=== PATIENT | female | born 1975 | race Two or more races ===

== ENCOUNTER 2024-08-24 10:00 | Inpatient (IN) | payer MEDICAID, OTHER ==
[~2024-08-24] VITALS: Ht 154.9 cm; Wt 68.9 kg
[2024-08-24] MEDS: KETOROLAC TROMETH 30 MG/ML 1ML VIAL IV ONE ×2 (10:20→17:38)
[2024-08-24] MEDS: SODIUM CHLORIDE 0.9% 1,000 ML IV ONE (10:20)
[2024-08-24 10:39] LABS: Potassium 4.1 mmol/L (3.5-5.1); Sodium 143 mmol/L (136-145)
[2024-08-24 10:40] LABS: Anion Gap 11 (5-15); Calcium 10.5 mg/dL (8.7-10.4); Carbon Dioxide 22 mmol/L (20-31); Chloride 110 mmol/L (98-107)
--- NOTE | 2024-08-24 10:41 | ED.PDOC ---
General HPI Comments 48 y/o F, BIBA, presents to the ED for CC of flank pain. EMS reports, patient is coming from home where she c/o left sided flank pain onset, last night (08/23/24). Patient states, to have experienced similar symptoms in the past when passing kidney stones. Patient denies fever, chills, dysuria, or hematuria. No other symptoms or modifying factors present at this time. 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 Hx Family History Family History: Unknown Social History Smoker: Non-Smoker Alcohol: Denies ETOH Use Drugs: Denies Drug Use Lives In: Home Constitutional: denies: chills, diaphoresis, fatigue, fever, malaise, sweats, weakness, others EENTM: denies: blurred vision, double vision, ear bleeding, ear discharge, ear drainage, ear pain, ear ringing, eye pain, eye redness, hearing loss, mouth pain, mouth swelling, nasal discharge, nose bleeding, nose congestion, nose pain, photophobia, tearing, throat pain, throat swelling, voice changes, others Respiratory: denies: cough, hemoptysis, orthopnea, SOB at rest, shortness of breath, SOB with excertion, stridor, wheezing, others Cardiovascular: denies: chest pain, dizzy spells, diaphoresis, Dyspnea on exertion, edema, irregular heart beat, left arm pain, lightheadedness, palpitations, PND, syncope, others Gastrointestinal: denies: abdomen distended, abdominal pain, blood streaked bowels, constipated, diarrhea, dysphagia, difficulty swallowing, hematemesis, melena, nausea, poor appetite, poor fluid intake, rectal bleeding, rectal pain, vomiting, others Genitourinary: reports: flank pain; denies: abnormal vagina bleeding, burning, dyspareunia, dysuria, frequency, hematuria, incontinence, pain, , vagina discharge, urgency, others Neurological: denies: dizziness, fainting, headache, left sided numbness, left sided weakness, numbness, paresthesia, pre-existing deficit, right sided numbness, right sided weakness, seizure, speech problems, tingling, tremors, weakness, others Musculoskeletal: denies: back pain, gout, joint pain, joint swelling, muscle pain, muscle stiffness, neck pain, others Integumetry: denies: bruises, change in color, change in hair/nails, dryness, laceration, lesions, lumps, rash, wounds, others Allergic/Immunocompromised: denies: Difficulty Healing, Frequent Infections, Hives, Itching, others Hematologic/Lymphatic: denies: anemia, blood clots, easy bleeding, easy bruising, swollen glands, others Endocrine: denies: excessive hunger, excessive sweating, excessive thirst, excessive urination, flushing, intolerance to cold, intolerance to heat, unexplained weight gain, unexplained weight loss, others Psychiatric: denies: anxiety, bipolar disorder, depression, hopeless, panic disorder, schizophrenia, sleepless, suicidal, others All Other Systems: Reviewed and Negative Physical Exam General Appearance: No Apparent Distress, Normal HEENT: Normal ENT Inspection, Pharynx Normal, TMs Normal Neck: Full Range of Motion, Non-Tender, Normal, Normal Inspection Respiratory: Chest Non-Tender, Lungs Clear, No Accessory Muscle Use, No Respiratory Distress, Normal Breath Sounds Cardiovascular: No Edema, No Murmur, No Gallop, Normal Peripheral Pulses, Regular Rate/Rhythm Breast Exam: Deferred Gastrointestinal: No Organomegaly, Non Tender, No Pulsatile Mass, Normal Bowel Sounds, Soft Genitalia: Deferred Pelvic: Deferred Rectal: Deferred Extremities: No calf tenderness, Normal capillary refill, Normal inspection, Normal range of motion, Non-tender, No pedal edema Musculoskeletal : Location: Left Extremity Location: Back Apperance: Tenderness Neurologic: Alert, business management intern II-XII nml as Tested, No Motor Deficits, Normal Affect, Normal Mood, No Sensory Deficits Cerebellar Function: Normal Reflexes: Normal Skin: Dry, Normal Color, Warm Lymphatic: No Adenopathy Was a procedure done? Was a procedure done?: No Differential Diagnosis Kidney stone (Female): Aortic dissection, , Appendicitis, Bowel obstruction, Cholelithiasis, Ectopic , Musculoskeletal pain, Ovarian torsion, Pancreatitis, Pyelonephritis, Renal failure, Strain, Urinary obstruction, Urolithiasis Kidney stone (Male): N/A Penile/Scrotal: N/A Urinary Problem (Male): N/A Urinary Problem (Female): UTI, Vaginitis X-Ray, Labs, Meds, VS Vital Signs Date Time Temp Pulse Resp B/P (MAP) Pulse Ox O2 Delivery O2 Flow Rate FiO2 08/24/24 12:17 177/96 08/24/24 10:17 77 18 178/92 (120) 99 08/24/24 10:17 77 18 99 Room Air 08/24/24 10:02 98.9 101 18 148/91 (110) 100 98.9 Lab Test 08/24/24 10:41 08/24/24 10:12 Range/Units Urine Color Yellow Yellow Urine Clarity Clear Clear Urine pH 6.0 5.0-9.0 Urine Specific [place] 1.032 1.001-1.035 Urine Protein 1+ H Negative Urine Ketones 2+ H Negative Urine Blood 3+ H Negative /uL Urine Nitrite Negative Negative Urine Bilirubin Negative Negative Urine Urobilinogen Normal Negative mg/dL Urine Leukocyte Esterase Negative Negative /uL Urine RBC 114 0 - 4 /hpf Urine Microscopic WBC 2 0-5 /HPF Urine Squamous Epithelial Cells Few <5 /hpf Urine Bacteria None seen None Seen /hpf Urine Mucus Few None Seen Urine Glucose Normal Normal mg/dL Urine Test Negative Negative White Blood Count 7.6 4.4-10.8 10^3/uL Red Blood Count 4.38 4.0-5.20 10^6/uL Hemoglobin 14.6 12.2-16.2 g/dL Hematocrit 42.8 36.0-46.0 % Mean Corpuscular Volume 97.7 80.0-100.0 fL Mean Corpuscular Hemoglobin 33.3 H 28.0-32.0 pg Mean Corpuscular Hemoglobin Concent 34.1 32.0-36.0 g/dL Red Cell Distribution Width 12.9 11.8-14.3 % Platelet Count 338 140-450 10^3/uL Mean Platelet Volume 8.9 6.9-10.8 fL Neutrophils (%) (Auto) 67.7 37.0-80.0 % Lymphocytes (%) (Auto) 22.0 10.0-50.0 % Monocytes (%) (Auto) 6.8 0.0-12.0 % Eosinophils (%) (Auto) 2.5 0.0-7.0 % Basophils (%) (Auto) 1.0 0.0-2.0 % Neutrophils # (Auto) 5.1 1.6-8.6 10 ^3/uL Lymphocytes # (Auto) 1.7 0.4-5.4 10 ^3/uL Monocytes # (Auto) 0.5 0-1.3 10 ^3/uL Eosinophils # (Auto) 0.2 0-0.8 10 ^3/uL Basophils # (Auto) 0.1 0-0.2 10 ^3/uL Nucleated Red Blood Cells 0.1 % Sodium Level 143 136-145 mmol/L Potassium Level 4.1 3.5-5.1 mmol/L Chloride Level 110 H 98-107 mmol/L Carbon Dioxide Level 22 20-31 mmol/L Anion Gap 11 5-15 Blood Urea Nitrogen 15 9-23 mg/dL Creatinine 0.83 0.550-1.02 mg/dL Glomerular Filtration Rate Calc 88 >90 mL/min BUN/Creatinine Ratio 18.1 10.0-20.0 Serum Glucose 88 74-106 mg/dL Calcium Level 10.5 H 8.7-10.4 mg/dL Current Medications Medications (Trade) Dose Ordered Sig/Babak Route Start Time Stop Time Status Last Admin Sodium Chloride 1,000 ml @ 1,000 mls/hr Q1H ONCE IV 08/24/24 10:15 08/24/24 11:14 DC 08/24/24 10:20 Ketorolac Tromethamine (Toradol Injection) 15 mg ONCE ONCE IV 08/24/24 10:15 08/24/24 10:16 DC 08/24/24 10:20 Fentanyl Citrate 25 mcg ONCE ONCE IV 08/24/24 12:15 08/24/24 12:16 DC 08/24/24 12:17 Time of 1ST Reevaluation: 10:45 Reevaluation 1ST: Unchanged Time of 2ND Reevaluation: 13:24 Reevaluation 2ND: Unchanged Patient Education/Counseling: Diagnosis, Treatment, Prognosis, Need For Follow Up Family Education/Counseling: No Family Present Additional Information Previous visits reviewed: The following tests were ordered, and results were reviewed by me: Additional Information was gathered from interviewing the following independent historians: EMS I reviewed and agreed with the following test results read by other providers: None I discussed treatment and results with medical personnel and: patient Comprehensive systems review obtained and negative except for what is stated in the HPI. pt has a 3-4mm ureteral stone with hydronephrosis, but her pain is intractable. her renal functions are preserved, and her urine is clean from any infections. however, due to the intractable pain, despite of multiple doses of various pain medications, she will be admitted for pain control and urology consult Departure 1 Departure Time of Disposition: 13:26 Impression: Primary Impression: Intractable abdominal pain Additional Impressions: Renal colic on left side Hydronephrosis Qualified Codes: N13.2 - Hydronephrosis with renal and ureteral calculous obstruction Ureteral stone Disposition: HOME / SELF CARE / HOMELESS Admit to: Med Surg Condition: Stable Discharged With: Self Critical Care Note Critical Care Time?: No Stability Stability form required: No Heart Score Heart Score: Heart Score Response (Comments) Value History N/A 0 EKG N/A 0 Age N/A 0 Risk Factors N/A 0 Troponin N/A 0 Total 0 I personally scribed for CHARLIE NORMAN MD ([email or web address]) on 08/24/24 at 10:41. Electronically submitted by Doris Jim ([email or web address]). CHARLIE NORMAN MD Aug 24, 2024 10:41
[2024-08-24 10:45] LABS: BUN/Creatinine Ratio 18.1 (10.0-20.0); Blood Urea Nitrogen 15 mg/dL (9-23); Glucose 88 mg/dL (74-106)
[2024-08-24 10:56] LABS: Urine Bacteria None Seen /hpf (None Seen)
[2024-08-24 11:03] LABS: Urine Blood 3+ /uL (Negative); Urine Clarity Clear (Clear); Urine Color Yellow (Yellow); Urine Mucus FEW (None Seen); Urine Protein, UAD 1+ (Negative); Urine Specific Gravity 1.032 (1.001-1.035); Urine Squamous Epithelial Cell FEW /hpf (<5); Urine Urobilinogen Normal (Negative); Urine WBC 2 /HPF (0-5)
[2024-08-24 11:11] LABS: Basophils # (auto) 0.1 10 ^3/uL (0-0.2); Eosinophils # (auto) 0.2 10 ^3/uL (0-0.8); Eosinophils % (auto) 2.5 % (0.0-7.0); Hematocrit 42.8 % (36.0-46.0); Hemoglobin 14.6 g/dL (12.2-16.2); Lymphocytes # (auto) 1.7 10 ^3/uL (0.4-5.4); Mean Corpuscular Hemoglobin 33.3 pg (28.0-32.0); Mean Corpuscular Hgb Conc. 34.1 g/dL (32.0-36.0); Mean Corpuscular Volume 97.7 fL (80.0-100.0); Monocytes # (auto) 0.5 10 ^3/uL (0-1.3); Monocytes % (auto) 6.8 % (0.0-12.0); Neutrophils # (auto) 5.1 10 ^3/uL (1.6-8.6); Neutrophils % (auto) 67.7 % (37.0-80.0); Nucleated Red Blood Cells % 0.1 %; Platelet Count (auto) 338 10^3/uL (140-450); Red Blood Cells 4.38 10^6/uL (4.0-5.20); Red Cell Distribution Width 12.9 % (11.8-14.3); White Blood Cell 7.6 10^3/uL (4.4-10.8)
[2024-08-24] MEDS: fentaNYL CITRATE 100 MCG/2 ML VL IV ONE (12:17)
--- NOTE | 2024-08-24 13:10 | DVH ---
Exam: CT CT AB PEL WO CON-NO ORAL OR IV History: left flank pain Comparison Study: None Technique: Multidetector spiral CT of the abdomen was performed from lung bases to pubic symphysis. Imaging was performed without IV contrast. Axial, coronal and sagittal multiplanar reformats were ob tained from the axial data set by the technologist. Radiation Dose : 1. Abdomen/Pelvis: CTDIvol 6.4 mGy, DLP 341.96 mGy*cm. Findings: Evaluation of solid organs is limited due to lack of intravenous contrast use. Lung Bases: No acute or significant lung base finding. Normal heart size. No pleural or pericardial effusion. Liver: The liver is normal in size. No focal lesions. Gallbladder and Biliary Tree: Unremarkable Spleen: Unremarkable Pancreas: The pancreas is grossly normal in appearance. Adrenal Glands: Unremarkable Kidneys: Moderate left hydroureteronephrosis secondary to an obstructing 3 x 4 x 3 mm calculus at the left ureterovesical junction. Bladder: Urinary bladder is decompressed. Bowel: Tiny hiatal hernia. The stomach is grossly normal in appearance. Small bowel and colon are nor mal in caliber and distribution. Normal appendix is visualized in the right lower quadrant without f indings of appendicitis. Ascites: Absent Lymphadenopathy: No mesenteric, retroperitoneal or periportal lymphadenopathy. Abdominal Wall and Mesentery: There is a 1.6 x 1.9 x 2.5 cm round focus in the subcutaneous tissues o verlying the right gluteal musculature with internal hazy fat attenuation and a thin peripheral rim. There are additional subcentimeter hazy foci in the subcutaneous tissues overlying the bilateral glut eal musculature. Vasculature: The visualized abdominal aorta is normal in size and caliber. Evaluation of abdominal a nd pelvic vessels is limited due to lack of intravenous contrast. Pelvic Organs: Unremarkable Musculoskeletal: No aggressive focal bony lesions, acute fractures or dislocation. IMPRESSION: 1. Moderate left hydroureteronephrosis secondary to an obstructing 3 x 4 mm calculus at the left UVJ. 2. Fat density lesion in the subcutaneous tissues overlying the right gluteal musculature that measur es up to 2.5 cm. This could represent an injection site granuloma (favored) or an atypical lipoma. R ecommend correlation for injections at this site. Radiation optimization: All CT scans at this facility use at least one of these dose optimization juan hniques: automated exposure control mA and/or kV adjustment per patient size (includes targeted exam s where dose is matched to clinical indication) or iterative reconstruction.
[2024-08-24] MEDS: ONDANSETRON HCL 4 MG/2 ML VIAL IV ONE (13:30)
[2024-08-24] MEDS: MORPHINE SULFATE INJ 2 MG/ml SYRG IV ONE (13:30)
--- NOTE | 2024-08-24 14:07 | DVHHP2 ---
History of Present Illness Reason for Visit: Flank pain left side History of Present Illness 48-year-old female past medical history kidney stones and ulcers no surgical history chief complaint patient comes in with left-sided flank pain that radiates to her left side of the abdomen he has been going on since last night patient states when she had the same symptoms she experienced a kidney stone she did deny any vomiting but some nausea no diarrhea no fever she denies any blood in her urine. Patient denies any chest pain no shortness with the breath when evaluating patient's labs and imaging from ED Zofran was given morphine fentanyl Toradol normal saline CBC was unremarkable BNP was unremarkable UA showed ketones and blood CT scan abdomen pelvis shows left hydronephrosis with obstructing 2-3 mm stone in the left UVJ. With these findings we will admit provide IV hydration and pain management Past Medical History See HPI above Past Surgical History See HPI above Family History Reviewed, non-contributory to the management of this case. Past Social History The patient lives at home, denies smoking, alcohol or illicit drugs abuse. Review of Systems Constitutional: No: Fever, Chills, Sweats, Weakness, Malaise, Other Eyes: No: Pain, Vision change, Conjunctivae inflammation, Eyelid inflammation, Other, Redness ENT: No: Ear pain, Ear discharge, Nose pain, Nose discharge, Nose congestion, Mouth pain, Mouth swelling, Throat pain, Throat swelling, Other Respiratory: No: Cough, Dry, Shortness of breath, SOB with excertion, Wheezing, Hemoptysis, Pleuritic Pain, Sputum, Wheezing, Other Cardiovascular: No: Chest Pain, Palpitations, Orthopnea, Paroxysmal Noc. Dyspnea, Edema, Lt Headedness, Other Gastrointestinal: Nausea, Abdominal Pain; No: Vomiting, Diarrhea, Constipation, Melena, Hematochezia, Other Genitourinary: Dysuria; No Frequency, No Incontinence, No Hematuria, No Retention, No Other Musculoskeletal: No: other, neck pain, shoulder pain, arm pain, back pain, hand pain, leg pain, foot pain Skin: No: Rash, Lesions, Jaundice, Bruising, Other Neurological: No: Weakness, Numbness, Incoordination, Change in speech, Confusion, Seizures, Other Allergies: Coded Allergies: NO KNOWN ALLERGIES (Unverified , 08/24/24) Exam Vital Signs Vital Signs Date Time Temp Pulse Resp B/P (MAP) Pulse Ox O2 Delivery O2 Flow Rate FiO2 08/24/24 12:17 177/96 08/24/24 10:17 77 18 99 08/24/24 10:17 Room Air 08/24/24 10:02 98.9 98.9 General Appearance: Alert, Oriented X3, Cooperative, No acute distress HEENT: Atraumatic, PERRLA, EOMI, Mucous membr. moist/pink Respiratory: Clear to auscultation, Normal air movement Cardiovascular: Regular rate, Normal S1, Normal S2, No murmurs Abdominal: Normal bowel sounds, Soft, No tenderness, No hepatospenomegaly, No masses, Other (Left flank pain left CVA tenderness) Extremities: No clubbing, No cyanosis, No edema, Normal pulses, No tenderness/swelling Skin: No rashes, No breakdown, No significant lesion Neuro: Normal gait, Normal speech, Strength at 5/5 X4 ext, Normal tone, Sensation intact, Cranial nerves 3-12 NL Psych/Mental Status: Mental status NL, Mood NL Labs/Xrays CT scan abdomen pelvis shows moderate left hydronephrosis obstructing 3-4 mm stone in left Uvj I reviewed labs, imaging CT scan abdomen pelvis, EKG and all diagnostic studies on this patient from ED records and the medical chart Labs Test 08/24/24 10:41 08/24/24 10:12 Range/Units Urine Color Yellow Yellow Urine Clarity Clear Clear Urine pH 6.0 5.0-9.0 Urine Specific [place] 1.032 1.001-1.035 Urine Protein 1+ H Negative Urine Ketones 2+ H Negative Urine Blood 3+ H Negative /uL Urine Nitrite Negative Negative Urine Bilirubin Negative Negative Urine Urobilinogen Normal Negative mg/dL Urine Leukocyte Esterase Negative Negative /uL Urine RBC 114 0 - 4 /hpf Urine Microscopic WBC 2 0-5 /HPF Urine Squamous Epithelial Cells Few <5 /hpf Urine Bacteria None seen None Seen /hpf Urine Mucus Few None Seen Urine Glucose Normal Normal mg/dL Urine Test Negative Negative White Blood Count 7.6 4.4-10.8 10^3/uL Red Blood Count 4.38 4.0-5.20 10^6/uL Hemoglobin 14.6 12.2-16.2 g/dL Hematocrit 42.8 36.0-46.0 % Mean Corpuscular Volume 97.7 80.0-100.0 fL Mean Corpuscular Hemoglobin 33.3 H 28.0-32.0 pg Mean Corpuscular Hemoglobin Concent 34.1 32.0-36.0 g/dL Red Cell Distribution Width 12.9 11.8-14.3 % Platelet Count 338 140-450 10^3/uL Mean Platelet Volume 8.9 6.9-10.8 fL Neutrophils (%) (Auto) 67.7 37.0-80.0 % Lymphocytes (%) (Auto) 22.0 10.0-50.0 % Monocytes (%) (Auto) 6.8 0.0-12.0 % Eosinophils (%) (Auto) 2.5 0.0-7.0 % Basophils (%) (Auto) 1.0 0.0-2.0 % Neutrophils # (Auto) 5.1 1.6-8.6 10 ^3/uL Lymphocytes # (Auto) 1.7 0.4-5.4 10 ^3/uL Monocytes # (Auto) 0.5 0-1.3 10 ^3/uL Eosinophils # (Auto) 0.2 0-0.8 10 ^3/uL Basophils # (Auto) 0.1 0-0.2 10 ^3/uL Nucleated Red Blood Cells 0.1 % Sodium Level 143 136-145 mmol/L Potassium Level 4.1 3.5-5.1 mmol/L Chloride Level 110 H 98-107 mmol/L Carbon Dioxide Level 22 20-31 mmol/L Anion Gap 11 5-15 Blood Urea Nitrogen 15 9-23 mg/dL Creatinine 0.83 0.550-1.02 mg/dL Glomerular Filtration Rate Calc 88 >90 mL/min BUN/Creatinine Ratio 18.1 10.0-20.0 Serum Glucose 88 74-106 mg/dL Calcium Level 10.5 H 8.7-10.4 mg/dL Assessment/Plan Assessment/Plan acute intractable flank pain likely from kidney stone found on ct scan ordered morphine as needed for pain Acute left obstructing stone with hydronephrosis size 3-4mm found on ct scan Ordered Flomax Ordered Toradol for 3 days ordered IV fluids Ordered morphine as needed for pain Ordered Zofran as needed for nausea Consulted urology follow-up recs Strict I/O's Ordered ceftriaxone for now can consider urology consult if worsening acute ketonuria ordered ivf for now acute hematuria likely from kidney stone cont iv hydration FEN/PPx no GI prophylaxis since pt is eating no hx of gerds or gi bleed scd Diet IV fluids Plan admit to medicine for pain management Plan discussed with: Patient Date of Service: Aug 24, 2024 Billing Provider: WADE LOMAX DNP Common Visit Codes: [id number] INP/OBS CARE (HIGH) WADE LOMAX DNP Aug 24, 2024 14:07
[2024-08-24] MEDS ORDERED: ONDANSETRON HCL 4 MG/2 ML VIAL IV PRN (16:15)
[2024-08-24] MEDS ORDERED: NITROGLYCERIN 0.4 MG SL TAB SL PRN (16:15)
[2024-08-24 17:32] VITALS: PULSE 88; RESP 16; O2SAT 96
[2024-08-24] MEDS: SODIUM CHLORIDE 0.9% 1,000 ML IV SCH (17:36)
[2024-08-24] MEDS: cefTRIAXone 1GM/50ML D5W 50 ML IV ONE (17:37)
[2024-08-24] MEDS: TAMSULOSIN HYDROCHLORIDE 0.4 MG CAP PO ONE (17:37)
[2024-08-24] MEDS: TAMSULOSIN HYDROCHLORIDE 0.4 MG CAP PO SCH (18:00)
[2024-08-24 18:36] VITALS: RESP 16
[2024-08-24 21:00] VITALS: BP 190/115; PULSE 90; RESP 20; TEMP 98.2; O2SAT 96
[2024-08-24] MEDS: MORPHINE SULFATE INJ 2 MG/ml SYRG IV PRN (21:42)
[2024-08-24] MEDS: KETOROLAC TROMETH 30 MG/ML 1ML VIAL IV PRN (22:43)
[2024-08-24] MEDS: cloNIDine HCL 0.1 MG TAB PO ONE (22:43)
[2024-08-25] VITALS (10 sets, daily range): BP systolic 82–154; BP diastolic 51–94; PULSE 61–80; RESP 15–18; TEMP 97.8–98.1; O2SAT 94–100
[2024-08-25] MEDS: cefTRIAXone 1GM/50ML D5W 50 ML IV SCH (07:55)
[2024-08-25 08:11] LABS: Basophils # (auto) 0 10 ^3/uL (0-0.2); Basophils % (auto) 0.6 % (0.0-2.0); Eosinophils # (auto) 0.2 10 ^3/uL (0-0.8); Eosinophils % (auto) 2.6 % (0.0-7.0); Hematocrit 36.4 % (36.0-46.0); Hemoglobin 12.6 g/dL (12.2-16.2); Lymphocytes # (auto) 1.6 10 ^3/uL (0.4-5.4); Lymphocytes % (auto) 18.4 % (10.0-50.0); Mean Corpuscular Hemoglobin 33.8 pg (28.0-32.0); Mean Corpuscular Hgb Conc. 34.7 g/dL (32.0-36.0); Mean Corpuscular Volume 97.7 fL (80.0-100.0); Monocytes # (auto) 0.7 10 ^3/uL (0-1.3); Monocytes % (auto) 8.4 % (0.0-12.0); Neutrophils # (auto) 6.1 10 ^3/uL (1.6-8.6); Platelet Count (auto) 280 10^3/uL (140-450); Red Blood Cells 3.73 10^6/uL (4.0-5.20); Red Cell Distribution Width 12.9 % (11.8-14.3); White Blood Cell 8.7 10^3/uL (4.4-10.8)
[2024-08-25 08:28] LABS: Alanine Aminotransferase 13 U/L (7-40); Albumin 3.7 g/dL (3.2-4.8); Alkaline Phosphatase 55 U/L (46-116); Anion Gap 11 (5-15); Aspartate Aminotransferase 13 U/L (<34); BUN/Creatinine Ratio 15.3 (10.0-20.0); Blood Urea Nitrogen 13 mg/dL (9-23); Calcium 9.1 mg/dL (8.7-10.4); Carbon Dioxide 20 mmol/L (20-31); Glucose 80 mg/dL (74-106); Potassium 3.7 mmol/L (3.5-5.1); Sodium 144 mmol/L (136-145); Total Protein 5.9 g/dL (5.7-8.2)
[2024-08-25 08:32] LABS: Chloride 113 mmol/L (98-107)
[2024-08-25] MEDS: DOCUSATE SOD 100 MG CAP PO PRN (11:44)
--- NOTE | 2024-08-25 16:13 | DVHPN2 ---
Progress Note Date Seen: Aug 25, 2024 Medical Necessity Reason Pt with a Central, PICC or Fol: No Subjective Patient reports: No new complaints Review of Systems: HEENT:Normal, CVS:Normal, RESPIRATORY:Normal, GI:Normal, :Normal, MSK:Normal, NEURO:Normal Objective vital signs Vital Sign Date Time Temp Pulse Resp B/P (MAP) Pulse Ox O2 Delivery O2 Flow Rate FiO2 08/25/24 13:00 97.8 61 16 127/76 (93) 98 97.8 08/25/24 08:00 Room Air* 0 21 Total Intake and Output 08/24/24 08/24/24 08/25/24 15:00 23:00 07:00 Intake Total 480 ml Output Total 0 ml Balance 480 ml medications Current Medications Medications Dose Ordered Sig/Babak Route Start Time Stop Time Status Last Admin Dose Admin Sodium Chloride 1,000 ml @ 120 mls/hr Q8H20M IV 08/24/24 16:15 08/25/24 06:53 120 MLS/HR Ondansetron HCl 4 mg Q4HP PRN IV 08/24/24 16:15 Docusate Sodium 100 mg BIDPRN PRN PO 08/24/24 16:15 08/25/24 11:44 100 MG Morphine Sulfate 2 mg Q4HPRN PRN IV 08/24/24 16:15 08/24/24 21:42 2 MG Nitroglycerin 0.4 mg Q5MINP PRN SL 08/24/24 16:15 Tamsulosin HCl 0.4 mg QPM PO 08/24/24 18:00 Ceftriaxone Sodium 50 ml @ 100 mls/hr DAILY@09 IV 08/25/24 09:00 08/25/24 07:55 100 MLS/HR Ketorolac Tromethamine 15 mg Q6HPRN PRN IV 08/24/24 16:15 08/29/24 16:14 08/25/24 13:54 15 MG Examination: GENERAL:Normal, HEENT:Normal, NECK:Normal, LUNGS:Normal, CVS:Normal, ABDOMEN:Normal, MSK:Normal, SKIN:Normal, NEURO:Normal, :Normal laboratory and microbiology Laboratory Tests 08/25/24 05:39 Test 08/25/24 05:39 Range/Units Serum Glucose 80 74-106 mg/dL Problem List/Assessment/Plan Problem List/Assessment/Plan #1 left renal stone with hydronephrosis: ivf, flomax #2 ?uti: iv rocephin Plan discussed with: Patient Date of Service: Aug 25, 2024 Billing Provider: ANJEL GUPTA MD Common Visit Codes: [id number] INP/OBS CARE(HIGH) ANJEL GUPTA MD Aug 25, 2024 16:13
[2024-08-25] MEDS: MANNITOL FTV 25% 12.5 GM/50 ML 50 ML IV ONE (18:12)
[2024-08-26 01:00] VITALS: BP 124/83; PULSE 85; RESP 18; TEMP 98.7; O2SAT 95
[2024-08-26 05:00] VITALS: BP 112/75; PULSE 67; RESP 18; TEMP 99.1; O2SAT 96
[2024-08-26 07:20] LABS: Basophils # (auto) 0.1 10 ^3/uL (0-0.2); Basophils % (auto) 0.8 % (0.0-2.0); Eosinophils # (auto) 0.3 10 ^3/uL (0-0.8); Eosinophils % (auto) 5.1 % (0.0-7.0); Hematocrit 34.2 % (36.0-46.0); Hemoglobin 11.9 g/dL (12.2-16.2); Lymphocytes # (auto) 1.8 10 ^3/uL (0.4-5.4); Lymphocytes % (auto) 27.3 % (10.0-50.0); Mean Corpuscular Hgb Conc. 34.7 g/dL (32.0-36.0); Monocytes # (auto) 0.5 10 ^3/uL (0-1.3); Monocytes % (auto) 7.3 % (0.0-12.0); Neutrophils # (auto) 3.9 10 ^3/uL (1.6-8.6); Neutrophils % (auto) 59.5 % (37.0-80.0); Nucleated Red Blood Cells % 0.1 %; Platelet Count (auto) 267 10^3/uL (140-450); Red Blood Cells 3.49 10^6/uL (4.0-5.20); Red Cell Distribution Width 13.1 % (11.8-14.3); White Blood Cell 6.6 10^3/uL (4.4-10.8)
[2024-08-26 07:26] LABS: Anion Gap 9 (5-15); Carbon Dioxide 21 mmol/L (20-31); Potassium 3.7 mmol/L (3.5-5.1); Sodium 143 mmol/L (136-145)
[2024-08-26 07:30] LABS: Calcium 8.2 mg/dL (8.7-10.4); Chloride 113 mmol/L (98-107)
[2024-08-26 07:31] LABS: Glucose 88 mg/dL (74-106)
[2024-08-26 07:32] LABS: BUN/Creatinine Ratio 15.2 (10.0-20.0); Blood Urea Nitrogen 10 mg/dL (9-23)
[2024-08-26 08:00] VITALS: PULSE 76; RESP 18; O2SAT 98
[2024-08-26 08:52] VITALS: BP 146/81; PULSE 81; RESP 16; TEMP 98.3; O2SAT 99
--- NOTE | 2024-08-26 10:01 | DVH ---
INDICATION: Pain TECHNIQUE: Multiple views of the abdomen were obtained. COMPARISON: None FINDINGS: The bowel loops are nondilated. There is no evidence of free air. The lung bases are clear. The visualized osseous structures appear intact. IMPRESSION: Large stool burden.
[2024-08-26 13:00] VITALS: BP 146/99; PULSE 77; RESP 18; TEMP 98.9; O2SAT 98
--- NOTE | 2024-08-26 15:55 | DVHDS2 ---
Discharge Summary Date of Admission Aug 24, 2024 at 16:14 Date of Discharge: Aug 26, 2024 Labs/Diagnostic Data: Laboratory Results Test 08/26/24 05:18 08/25/24 05:39 08/24/24 10:41 White Blood Count 6.6 10^3/uL (4.4-10.8) Red Blood Count 3.49 10^6/uL (4.0-5.20) Hemoglobin 11.9 g/dL (12.2-16.2) Hematocrit 34.2 % (36.0-46.0) Mean Corpuscular Volume 98.0 fL (80.0-100.0) Mean Corpuscular Hemoglobin 34.0 pg (28.0-32.0) Mean Corpuscular Hemoglobin Concent 34.7 g/dL (32.0-36.0) Red Cell Distribution Width 13.1 % (11.8-14.3) Platelet Count 267 10^3/uL (140-450) Mean Platelet Volume 9.0 fL (6.9-10.8) Neutrophils (%) (Auto) 59.5 % (37.0-80.0) Lymphocytes (%) (Auto) 27.3 % (10.0-50.0) Monocytes (%) (Auto) 7.3 % (0.0-12.0) Eosinophils (%) (Auto) 5.1 % (0.0-7.0) Basophils (%) (Auto) 0.8 % (0.0-2.0) Neutrophils # (Auto) 3.9 10 ^3/uL (1.6-8.6) Lymphocytes # (Auto) 1.8 10 ^3/uL (0.4-5.4) Monocytes # (Auto) 0.5 10 ^3/uL (0-1.3) Eosinophils # (Auto) 0.3 10 ^3/uL (0-0.8) Basophils # (Auto) 0.1 10 ^3/uL (0-0.2) Nucleated Red Blood Cells 0.1 % Sodium Level 143 mmol/L (136-145) Potassium Level 3.7 mmol/L (3.5-5.1) Chloride Level 113 mmol/L (98-107) Carbon Dioxide Level 21 mmol/L (20-31) Anion Gap 9 (5-15) Blood Urea Nitrogen 10 mg/dL (9-23) Creatinine 0.66 mg/dL (0.550-1.02) Glomerular Filtration Rate Calc 109 mL/min (>90) BUN/Creatinine Ratio 15.2 (10.0-20.0) Serum Glucose 88 mg/dL (74-106) Calcium Level 8.2 mg/dL (8.7-10.4) Total Bilirubin 1.0 mg/dL (0.2-1.0) Aspartate Amino Transferase (AST) 13 U/L (<34) Alanine Aminotransferase (ALT) 13 U/L (7-40) Alkaline Phosphatase 55 U/L (46-116) Total Protein 5.9 g/dL (5.7-8.2) Albumin 3.7 g/dL (3.2-4.8) Urine Color Yellow (Yellow) Urine Clarity Clear (Clear) Urine pH 6.0 (5.0-9.0) Urine Specific [place] 1.032 (1.001-1.035) Urine Protein 1+ (Negative) Urine Ketones 2+ (Negative) Urine Blood 3+ /uL (Negative) Urine Nitrite Negative (Negative) Urine Bilirubin Negative (Negative) Urine Urobilinogen Normal mg/dL (Negative) Urine Leukocyte Esterase Negative /uL (Negative) Urine RBC 114 /hpf (0 - 4) Urine Microscopic WBC 2 /HPF (0-5) Urine Squamous Epithelial Cells Few /hpf (<5) Urine Bacteria None seen /hpf (None Seen) Urine Mucus Few (None Seen) Urine Glucose Normal mg/dL (Normal) Urine Test Negative (Negative) Other Laboratory Tests 08/26/24 05:18 Brief Hx & Hospital Course: see dictated note Condition at Discharge: Good Final Diagnosis/Problems List left renal stone Discharge Disposition: Home Discharge Instruct/Medications Diet: Regular Activity: No Restrictions, As Tolerated Follow Up/Referral: fu with pcp in 2 wks Medications: resume home meds Discharge Statement: "Patient was advised to return to the ER or call 911 if any headaches, dizziness, shortness of breath, chest pain, abdominal pain, bleeding, fevers, or worsening of medical condition. Patient was counseled about treatment plan, medications, possible side effects, patientverbalized understanding. All questions were answered to the best of my ability. This discharge took greater then 30 minutes in planning, reviewing documentation, counseling the patient, and discussing with other team members." ASSESSMENT ASSESSMENT Assessment left renal stone Date of Service: Aug 26, 2024 Billing Provider: ANJEL GUPTA MD Common Visit Codes: [id number] DISCH DAY >30min ANJEL GUPTA MD Aug 26, 2024 15:55
[2024-08-26] MEDS: DOCUSATE SOD 100 MG CAP PO ONE (16:29)
--- NOTE | 2024-08-26 16:39 | DVHDS ---
DATE OF DISCHARGE: 08/26/2024 HISTORY OF PRESENT ILLNESS: The patient is a 48-year-old lady who was admitted with complaints of left pain radiating down the abdomen. HOSPITAL COURSE: The patient had a CT of the abdomen and pelvis that showed moderate left hydronephrosis with a 3 x 4 mm calculus at the left ureterovesicular junction. The patient had CBC within normal limits. Kidney function was within normal limits. The patient since had no pain and is doing well. The patient shows evidence of large stool burden. She will be discharged home to resume her home medications and follow up with her primary in the next 1-2 weeks. FINAL DIAGNOSES: Therefore, * Left ureteral stone with hydronephrosis. * Constipation. Time spent in discharge planning and review of plan with the patient and nursing was 32 minutes. MD LAZARA Richmond/LUDMILA TID: [id number] RECEIPT: [id number]
[2024-08-26 16:43] VITALS: BP 159/98; PULSE 80; RESP 18; TEMP 98.4; O2SAT 97
== END 2024-08-26 19:00 | disposition home or self-care (01) | DRG 465 ==
LOC: ER 10:00 → EDBD 10:00 → OVERFLOW 16:14 → WEST WING 21:00
PROVIDERS: ADMIT Internal Medicine; ATTEND Internal Medicine
DX: N13.2 Hydronephrosis with renal and ureteral calculous obstruction (principal); K59.00 Constipation, unspecified; R82.4 Acetonuria; R31.9 Hematuria, unspecified
CPT/HCPCS: 36415; 74018; 74176; 80048; 80053; 81001; 81025; 85025; 96361; 96374; 96375; G0378; J1885; J2405